=== PATIENT | female | born 1945 | race Caucasian/White ===

== ENCOUNTER 2017-02-02 18:18 | Observation (INO) | payer MEDICARE, BC ==
[~2017-02-02] VITALS: Ht 152.4 cm; Wt 83.0 kg
--- NOTE | ~2017-02-02 | ESTC ---
Cardiac Perfusion Imaging Demographics Patient Name QUE Vogel Gender Female Patient Number [id number] Race Visit Number [id number] [place] [id number] Room Number G6302 Accession Number [id number] Height Date of 1945 Weight Age 71 year(s) BSA Referring Physician Isaiah Hurt MD BMI Interpreting Jose Leslie Date of study 02/03/2017 Physician MD Supervising MD/MLP Marichuy More APRN NM Technologist Ordering Physician Isaiah Hurt MD Stress Jernigan Kj Patterson body technician/painter Stress ECG Reading Marichuy More APRN Nurse Dean Lacy RN Physician The procedure was explained in detail to the patient. Risks, complications and alternative treatments were reviewed. Written consent was obtained. Medications Reviewed with Patient prior to Procedure. Procedure Admit Source:Other. Procedure Type: Nuclear Stress Test:Pharmacological, Lexiscan, Cardiolite Stress Test Procedure Start time: 02/03/2017 09:27 Indications: Chest pain. Risk Factors The patient risk factors include:prior PCI;Current/Recent(w/in 1 year) tobacco use and treated hypercholesterolemia. Conclusions Summary Perfusion Images: The overall quality of the study is good. Left ventricular cavity is noted to be normal on the stress and normal on the rest images. There is no evidence of abnormal lung activity. The right ventricle is not visualized an cannot be assessed. Impression ECG portion of the lexiscan stress test is clinically negative for ischemia by diagnostic criteria. Myocardial perfusion imaging is mildly abnormal. The images reveal a very small size/mild reversible defect in the distal anterolateral wall consistent with ischemia . Overall left ventricular systolic function was normal. Calculated LVEF is 75% and TID ratio is 1.15. Stress Protocols Resting ECG Sinus bradycardia Resting HR:58 bpm Resting BP:97/55 mmHg Pre-stress physical exam: Patient assessed by Carlee HAIDER prior to testing. Chest - CTA Cardio - RRR, S1, S2 Stress Protocol:Pharmacologic Peak HR:73 bpm HR response: Appropriate Peak BP:102/55 mmHg BP response: Appropriate Predicted HR: 149 bpm HR/BP product:7446 % of predicted HR: 49 Reason for termination:Infusion complete ECG Findings No ECG changes suggestive of ischemia. Arrhythmias No rhythm abnormality. Symptoms Nausea. Complications Procedure complication: None. Stress Interpretation Appropriate hemodynamic response to Lexiscan. No significant ST-T wave changes with Lexiscan. ECG portion is negative for ischemia by diagnostic criteria. Will correlate with nuclear images. Imaging Results Summed scores - Summed stress score: 16 - Summed rest score: 6 - Summed difference score: 10 Stress ejection Ejection fraction:75 % EDV :79 ml ESV :20 ml Stroke volume :59 ml LV mass :106 gr Imaging Protocols Rest Stress Isotope:Tc99m Sestamibi IV Isotope dose:39.9 mCi Isotope dose:13 mCi Date:02/03/2017 09:59 Date:02/03/2017 08:00 Technique: SPECT Technique: Gated Supine SPECT Supine IV remains in place after procedure. Scan Time:45-60 minutes post Scan Time:45-60 minutes post injection injection Procedure Medications - Regadenoson (Lexiscan) 0.4 mg IV over 10-15 sec. I.V. 0.4 mg. Medications administered per verbal order and read back to physician prior to administration. Medical History Admission Data Admission date: 02/02/2017 Admission Time: 20:00 Hospital Status: Inpatient. Signatures dtt: RACHEL EARLY dtd: 02/03/17926 Physician Self Edit
--- NOTE | ~2017-02-02 | HP ---
PATIENT'S NAME: DC GREY [facility] AGE: 71 Y [address] ROOM: [address] [address] [facility] ADMIT DATE: 02/02/2017 History & Physical DISCHARGE DATE: FAMILY PHYSICIAN: SUSANA MOON PA-C ATTENDING PHYSICIAN: Faustino Dwyer DATE OF SERVICE: CHIEF COMPLAINT: Chest pain. HISTORY OF PRESENTING ILLNESS: This 71-year-old white female with previous history of coronary artery disease, hypertension, and hyperlipidemia, who was brought to the emergency department with chest pain, that began around 1 o'clock this afternoon. She states she had eaten a fairly large meal of chicken nuggets at around noon. At 1 o'clock, she did develop some epigastric pain and pressure. She does describe it like anginal symptoms, which she has had in the past. She took some nitro, and initially, it seemed to get better, but then it returned over the course of the afternoon. She did take 3 nitroglycerin tablets. Subsequently, she decided to come to the emergency room. Her initial evaluation was fairly unremarkable. Nitroglycerin drip was started, and she is now chest pain free. She had a positive stress test this past fall at an outlying facility. She was seen and evaluated by Cardiology and recommended to undergo heart catheterization. This was done on June 28, 2016, by Dr. Colon and demonstrated patent stents and continued medical therapy was recommended. She has been compliant with her medication regimen. She denies fever, chills, or sweats, but has had some occasional congestion and cough recently. Cough is not productive. She is not taking any cold medications presently. She does admit to quite a bit of acid reflux and frequently gets food and liquid into her mouth. She has had instances of food "getting stuck" in the past but has never been evaluated for that. She denies abdominal pain. She stools and voids normally. She denies numbness, tingling, weakness in her extremities, or any other associated physical or constitution complaints. ALLERGIES: PENICILLIN, SULFA, IBUPROFEN, LATEX. ILLNESSES: 1. Coronary artery disease, status post PCI with stents. PATIENT'S NAME: DC GREY [facility] AGE: 71 Y [address] ROOM: G6302 [place], [place] [address] [facility] ADMIT DATE: 02/02/2017 History & Physical DISCHARGE DATE: FAMILY PHYSICIAN: SUSANA MOON PA-C ATTENDING PHYSICIAN: Faustino Dwyer 2. Essential hypertension. 3. Hyperlipidemia. 4. Obesity. 5. Chronic dyspepsia. CURRENT MEDICATIONS: 1. Amlodipine 2.5 mg p.o. daily. 2. Aspirin 81 mg p.o. daily. 3. HCTZ 25 mg p.o. daily. 4. Atarax 25 mg p.o. daily p.r.n. 5. Acidophilus 1 cap p.o. daily. 6. Melatonin 5 mg p.o. q.h.s. 7. Multivitamin daily. 8. Nitrostat p.r.n. 9. Potassium 20 mEq p.o. daily. 10. Sertraline 50 mg p.o. q.h.s. 11. Simvastatin 10 mg p.o. q.h.s. FAMILY HISTORY: significant for coronary artery disease in both of her parents, who had both suffered myocardial infarction. Her sister had breast cancer. SOCIAL HISTORY: She is and lives in [place] with her . She does have a 50-pack- year history of smoking tobacco and continues to smoke several cigarettes per day. There is no significant history of alcohol use. REVIEW OF SYSTEMS: As per HPI. All other organ systems reviewed and are negative. OBJECTIVE: VITAL SIGNS: Temperature 97.1, pulse 84, respirations 18, blood pressure 186/85, O2 saturation 93% on room air. GENERAL: She is frail, anxious, but cooperative, lying in bed, no acute distress. SKIN: Supple, pink, warm, and dry. No obvious rashes. HEENT: Otherwise, normocephalic. Sclerae nonicteric. Pupils equal, round, and reactive to light and accommodation. Extraocular movements appear intact. Nasal turbinates normal in appearance. Oropharynx clear. Mucous membranes are pink and moist. NECK: Supple. No masses or adenopathy. No thyromegaly. No JVD. No carotid bruits are heard. CHEST: Chest wall is symmetrical. HEART: Distant regular. There is a grade 1 to 2 out of 6 systolic ejection murmur. PATIENT'S NAME: QUEDC [facility] AGE: 71 Y [address] ROOM: [place] [address] [facility] ADMIT DATE: 02/02/2017 History & Physical DISCHARGE DATE: FAMILY PHYSICIAN: SUSANA MOON PA-C ATTENDING PHYSICIAN: Faustino Dwyer LUNGS: Diminished at the bases with long expiratory phase. No letitia wheezes. No areas of consolidation. ABDOMEN: Soft, obese, nontender. Bowel sounds present. No masses. No hepatosplenomegaly. and RECTAL: Not done. EXTREMITIES: Display trace pitting edema. No cyanosis. NEUROLOGICAL: No focal deficits. LABORATORY AND X-RAY DATA: A 12-lead EKG shows no acute ST abnormalities. Cardiac enzymes reveal a CPK of 79, troponin I of less than 0.04, and CK-MB is 0.8. CBC demonstrates an elevated white blood cell count of 13.2, hemoglobin is 12.4, hematocrit is 36.1, platelets 275. Chemistries reveal a BUN and creatinine of 15 and 0.7 respectively, sodium and potassium of 139 and 3.6, chloride and CO2 are 104 and 26, calcium is 8.6. AST and ALT of 14 and 18, bilirubin is 0.3. PT and PTT of 10.1 and 31, with an INR of 0.96. Chest x-ray shows no acute cardiopulmonary abnormalities. ASSESSMENT AND PLAN: 1. Chest pain. Unstable angina versus noncardiac cause. We will admit for observation. She does fit high-risk criteria based on her history of known coronary artery disease, aspirin use, and concomitant hypertension, hyperlipidemia, and strong family history. Dr. Colon has already been notified about her arrival here and will consult. We will trend cardiac enzymes tonight and monitor her on telemetry. Hold off on heparinization but plan to continue with nitroglycerin for relief of chest pain. We will tentatively plan for a cardiac stress testing in the morning. It is reassuring that she had a negative heart catheterization within the last 6 months. Consider other possible sources for pain including the possibility of a gastroenterologic source. 2. Essential hypertension, labile but adequately controlled. We will plan to continue the home regimen and make adjustments if necessary. We will add beta-alba therapy and FOX inhibitor therapy at least preliminarily. We will monitor her response. 3. Chronic dyspepsia with gastroesophageal reflux disease. She may benefit from a GI workup at some point. We will get amylase and lipase. 4. Hyperlipidemia. Plan to continue with statin therapy. 5. Chronic hypoxic hypercapnic respiratory failure with chronic obstructive pulmonary disease and tobacco-related lung disease. Encourage good pulmonary hygiene. Supplemental oxygen if needed and urged smoking cessation. 6. Osteoarthritis, generalized. We will try to mobilize her. Symptomatic treatment but avoid nonsteroidal anti-inflammatory drugs. 7. Obesity. We will need to work on some long-term strategies for weight loss including calorie reduction, increased exercise, etc.. PATIENT'S NAME: DC GREY [facility] AGE: 71 Y [address] ROOM: [place] [address] LOCATION: [facility] ADMIT DATE: 02/02/2017 History & Physical DISCHARGE DATE: FAMILY PHYSICIAN: SUSANA MOON PA-C ATTENDING PHYSICIAN: Faustino Dwyer 8. Deep venous thrombosis prophylaxis. We will follow the VTE protocol. MD LAURE LOUIS/marinal /[id number] D: 017 T: 308 HISTORY & PHYSICAL
--- NOTE | ~2017-02-02 | ER ---
[facility] AGE[facility] 71 Y [address] ROOM: [place] [address] LOCATION: [facility] ADMIT DATE: 02/02/2017 ER/Outpatient Report DISCHARGE DATE: FAMILY PHYSICIAN: SUSANA MOON PA-C ATTENDING PHYSICIAN: Faustino Dwyer Time of Arrival: 1818 hours. Time of Evaluation: 1822 hours. IDENTIFICATION: A 71-year-old female. CHIEF COMPLAINT: Chest pain. HISTORY OF PRESENT ILLNESS: The patient is a 71-year-old female who has had left-sided chest pain off and on since about 1:00 p.m. She has taken 4 nitroglycerin throughout the day with some relief, but it has returned now with increasing severity and shortness of breath. She has nausea. No vomiting. PAST MEDICAL HISTORY: Allergies: Penicillin and sulfa. CURRENT MEDICATIONS: 1. Hydrochlorothiazide 25 mg daily. 2. Hydroxy HCl 25 mg daily. 3. Aspirin 81 mg daily. 4. Simvastatin 10 mg daily. 5. Sertraline 50 mg daily. 6. KCl 20 mEq daily. 7. Amlodipine 2.5 mg daily. MEDICAL PROBLEMS: Anemia, hyperlipidemia, depression, COPD, hypertension, pericarditis, and coronary artery disease. PRIOR SURGERIES: Cardiac stents in 2010 and 2011, cholecystectomy, appendectomy, wrist surgery, hysterectomy, and tubal ligation. SOCIAL HISTORY: The patient lives in [place]. She is retired. She is . Tobacco use: History of smoking, quit November of 2016. Alcohol use, occasional beer. Drug use, denies. PATIENT'S NAME: DC GREY [facility] AGE: 71 Y [address] ROOM: [address] [address] LOCATION: [facility] ADMIT DATE: 02/02/2017 ER/Outpatient Report DISCHARGE DATE: FAMILY PHYSICIAN: SUSANA MOON PA-C ATTENDING PHYSICIAN: Faustino Dwyer ROS: All systems reviewed and negative other than what is noted in the HPI. FAMILY HISTORY: No pertinent family history identified. PHYSICAL EXAMINATION: VITAL SIGNS: Height 5 feet 2 inches, weight 83.2 kg, blood pressure 186/85, pulse 70, respirations 22, temperature 98.6, saturations 97%. GENERAL: A pleasant 71-year-old female, in no acute distress, although her pain was 8/10 on arrival, but after one sublingual nitroglycerin, has improved to 6, and with a nitroglycerin drip, has improved to 3. HEENT: Head: Normocephalic and atraumatic. Ears: TMs are translucent, both ears. Nose: Mucosa pink, no lesions. Mouth: No lesions. Pharynx benign. NECK: Supple. No lymphadenopathy. LUNGS: Clear to auscultation. HEART: Regular rate and rhythm. ABDOMEN: Soft, nondistended, and nontender. SKIN: [place], warm, and dry. No lesions or rashes noted. NEURO: No focal deficit. Trace of lower extremity edema. No calf tenderness. LABORATORY DATA: EKG: Normal sinus rhythm at 64 beats per minute. No acute ST elevation or depression. Hemoglobin 12.4, hematocrit 36.1, platelets 275, white count 13.2, normal differential. INR 0.96. ProBNP 448. Sodium 139, potassium 3.6, chloride 104, CO2 26, BUN 15, creatinine 0.7. Blood sugar 96. Liver enzymes are normal. Magnesium 2.1. CPK is 79. CK-MB 0.8. Troponin I less than 0.040. Chest x-ray, no acute process, pending Radiology over-read. D-dimer normal at 0.32. IMPRESSION: Chest pain, relieved with nitroglycerin. PLAN: 1. The patient took one full-strength aspirin prior to arrival. She is on a nitroglycerin drip and her pain is improved significantly. She will be admitted for serial EKG and enzymes per Dr. Dwyer, hospitalist, who did evaluate her here in the emergency room. Dr. Colon has been notified and will provide consultation. She did have a negative catheterization in June. 2. Hypertension. 3. Hyperlipidemia. PATIENT'S NAME: DC GREY [facility] AGE: 71 Y [address] ROOM: G6302 [place], [place] [address] [facility] ADMIT DATE: 02/02/2017 ER/Outpatient Report DISCHARGE DATE: FAMILY PHYSICIAN: SUSANA MOON PA-C ATTENDING PHYSICIAN: Faustino Dwyer MD LEROY KING/luis eduardo /[id number] d: 02/03/17 0456 t: 02/03/17 0549, OUTPATIENT REPORT
--- NOTE | ~2017-02-02 | DS ---
PATIENT'S NAME: DC GREY [facility] AGE: 71 Y [address] ROOM: [address] [address] LOCATION: [facility] ADMIT DATE: 02/02/2017 Discharge Summary DISCHARGE DATE: 02/03/2017 FAMILY PHYSICIAN: Jyoti Daigle PA-C ATTENDING PHYSICIAN: Faustino Dwyer PRINCIPAL DISCHARGE DIAGNOSIS: Atypical chest pain. SECONDARY DIAGNOSES: 1. Obstructive sleep apnea. 2. History of tobacco use x50 years. The patient reports she quit 3 months ago. 3. Wheeze. 4. Dyspnea on exertion. 5. Coronary artery disease, status post stents. 6. Essential hypertension. 7. Obesity. 8. Hyperlipidemia. 9. Bradycardia. CONSULTATIONS: Cardiology, Dr. Colon. BRIEF HISTORY: Ms. Grey is a very pleasant, 71-year-old female with a known history of coronary artery disease, but has had a negative cardiac catheterization in June 2016. She follows up with Dr. Colon as an outpatient. She was recently started on amlodipine by him. The patient developed substernal chest pain at home after eating chicken nuggets for lunch. The epigastric pain and pressure resolved after nitroglycerin, but recurred. She then presented to the emergency room where nitroglycerin drip was started, and she became pain-free by the time the hospitalist evaluate her. On my review of systems, the patient states that she is currently pain-free after a stress test this morning that had a very small area of reversible ischemia, but it was not felt to be significant, and no EKG changes. She is off nitroglycerin drip. She had earlier some chest pain which resolved spontaneously. She was given a GI cocktail. She reports that she has been short of breath for the past 3 weeks. She was also indicating to the respiratory therapist that she does have sleep apnea and is noncompliant every night with her CPAP, which she has had for a couple of years. She was given nebulizers several years ago for an episode of bronchitis, but she does not take any kind of inhalers on a daily basis at this time. She does not see a machine brusher. PATIENT'S NAME: DC GREY [facility] AGE: 71 Y [address] [address] LOCATION: [facility] ADMIT DATE: 02/02/2017 Discharge Summary DISCHARGE DATE: 02/03/2017 FAMILY PHYSICIAN: Jyoti Daigle PA-C ATTENDING PHYSICIAN: Faustino Dwyer She is ready for discharge, and we had her ambulate around the hallway, which she did without difficulty, and her saturation ranged from 89% to 93% on room air. Thus, she does not qualify for home O2 at this time. She and her both expressed a desire to go home and agree with early followup with PCP and director of operations home health, and I have recommended a referral to machine brusher to sort out her issues with her sleep apnea machine and evaluate her for COPD. INSTRUCTIONS AT DISCHARGE: Cardiac diet with low carb. Activity as tolerated. Follow up with Dr. Colon in the next 2 weeks. See her PCP, Jyoti Daigle, in less than a week. Write a referral to Pulmonology for PFTs, evaluation for COPD, and to assess her sleep apnea. She also may need a full echocardiogram to evaluate for pulmonary hypertension. CONDITION AT DISCHARGE: Good. MEDICATIONS: 1. Nitroglycerin sublingual p.r.n. chest pain. 2. Amlodipine 2.5 mg p.o. daily. 3. Aspirin 325 mg daily with lunch. 4. She was started on enalapril 2.5 mg p.o. daily. I will give her a script for that. 5. Hydrochlorothiazide 25 mg p.o. daily. 6. Atarax 25 mg p.o. q.h.s. p.r.n. itching. 7. Probiotic one capsule at home. 8. Melatonin 5 mg p.o. at h.s. 9. Multivitamin one p.o. daily. 10. Potassium 20 mEq p.o. daily. 11. Sertraline 50 mg p.o. at h.s. 12. Zocor 10 mg p.o. at h.s. 13. She was given a beta-alba here, but her heart rate is slow, and I do not think it is appropriate to continue that at this time. 14. I have given her a script for albuterol MDI one puff p.r.n. wheeze or dyspnea 4 times a day and Spiriva one capsule inhaled daily on a scheduled basis. Greater than 30 minutes were spent in the discharge process. DAVID RODRIGUEZ MD LM/luis eduardo PATIENT'S NAME: DC GREY [facility] AGE: 71 Y [address] ROOM: [place] [address] [facility] ADMIT DATE: 02/02/2017 Discharge Summary DISCHARGE DATE: 02/03/2017 FAMILY PHYSICIAN: Jyoti Daigle PA-C ATTENDING PHYSICIAN: Faustino Dwyer /[id number] CC: STEPHANIE Kay MD d: 02/04/17 1902 t: 02/12/17 1810, DISCHARGE SUMMARY
--- NOTE | ~2017-02-02 | CON ---
PATIENT'S NAME: WHITNEY GREYE Jaspreet [facility] AGE: 71 Y [address] ROOM: [place] [address] LOCATION: GPCU ADMIT DATE: 02/02/2017 Consultation DISCHARGE DATE: FAMILY PHYSICIAN: SUSANA MOON PA-C ATTENDING PHYSICIAN: Faustino Dwyer REFERRING PHYSICIAN: Blu Colon MD REASON FOR ADMISSION: Chest pain. HISTORY OF PRESENT ILLNESS: This is a 71-year-old female, who presented to the emergency room with complaints of left-sided chest pain that has been going on since 1 p.m. She has taken four nitroglycerin throughout the day with some relief, but it returned again, now increasing in severity as well as shortness of breath. She has some nausea but no vomiting with this. She carries a history of coronary artery disease and had a left heart catheterization on June 12, 2016. At that time, her LAD was normal, RCA was normal, LCX was also normal. Medical therapy was recommended. She has had stents placed to the LCX in 2011 and to the RCA in 2010. Her cardiac enzymes so far have been negative, and her EKG does not show any new ST or T-wave changes. She denies any shortness of breath. She denies dyspnea on exertion. No orthopnea, PND, and no peripheral edema. She denies any fevers or chills. She occasionally has a cough but is nonproductive. She does admit to lot of acid reflux. She also describes instances where food gets "stuck in the back of her throat," but she has never been evaluated for that. ACTIVE PROBLEM LIST: 1. Coronary artery disease. 2. Dyslipidemia. 3. Essential hypertension. 4. Obstructive sleep apnea, using CPAP. 5. Gastroesophageal reflux disease. 6. COPD. 7. Overactive bladder. 8. Anxiety and depression. 9. History of hypokalemia. 10. History of pericarditis. 11. History of migraines. 12. C. diff years ago in [facility]. PAST SURGICAL HISTORY: 1. Appendectomy. 2. Hysterectomy. 3. Cholecystectomy. 4. Tubal ligation. PATIENT'S NAME: DC GREY [facility] AGE: 71 Y [address] ROOM: [place] [id number] [facility] ADMIT DATE: 02/02/2017 Consultation DISCHARGE DATE: FAMILY PHYSICIAN: SUSANA MOON PA-C ATTENDING PHYSICIAN: Faustino Dwyer 5. History of left breast lumpectomy. 6. Trigger finger release x2. 7. Two surgeries on her shoulder. 8. Left heart catheterization, 01/03/2004, nonobstructive disease. 9. Left heart catheterization, 06/20/2011, PTCA and stent to the RCA. 10. Left heart catheterization, 12/06/2011, PTCA and stent to ostial left circumflex. 11. Left heart catheterization, 01/01/2014, two-vessel coronary artery disease, patent stent to the left circumflex and right coronary artery. 12. Left heart catheterization, 06/12/2016, patent stents, nonobstructive disease. ALLERGIES: PENICILLIN, SULFA, ASPIRIN, IBUPROFEN, ADHESIVE TAPE, LATEX. CURRENT MEDICATIONS: 1. Amlodipine 2.5 mg daily. 2. Aspirin 325 mg daily. 3. Hydrochlorothiazide 25 mg daily. 4. Hydroxyzine 25 mg every h.s. 5. Acidophilus 1 capsule daily. 6. Melatonin 5 mg every h.s. 7. Multivitamin 1 p.o. every day. 8. Nitroglycerin sublingual 0.4 mg p.r.n. 9. Potassium chloride 20 mEq every day. 10. Zoloft 50 mg every h.s. 11. Zocor 1/2 of a 20 mg tablet or 10 mg every day. FAMILY HISTORY: Father from an SD. Mother had hypertension, diabetes mellitus, and history of an SD. She has sisters with heart problems, congestive heart failure, and a sister with diabetes. She had a brother, who from stomach cancer. SOCIAL HISTORY: She is . She smoked for 55 years, a pack of cigarettes a day. She quit in November of this year. She has 2 alcoholic drinks a week. REVIEW OF SYSTEMS: GENERAL: She has been a little more fatigued. HEAD: She does have a history of migraines. EYES: She wears corrective lenses. EARS: No problems with hearing. NOSE: No epistaxis or rhinorrhea. MOUTH: No gingival bleeding. PATIENT'S NAME: DC GREY [facility] AGE: 71 Y [address] ROOM: [id number] [place], [place] [id number] LOCATION: GPCU ADMIT DATE: 02/02/2017 Consultation DISCHARGE DATE: FAMILY PHYSICIAN: SUSANA MOON PA-C ATTENDING PHYSICIAN: Faustino Dwyer THROAT: Denies sore throat, hoarseness. She does have difficulty with swallowing at times. She does complain of gastroesophageal reflux with fluid and sometimes food regurgitation into her mouth. PULMONARY: She carries a history of COPD and has some problems with shortness of breath. CV: Per HPI. GASTROINTESTINAL: Positive for heartburn. She has a history of C. diff, but no active problems at this time. No nausea, vomiting, diarrhea. No melena. No history of elevated liver enzymes. GENITOURINARY: Negative for urinary tract infection. ENDOCRINE: No heat or cold intolerances. No problems with diabetes mellitus. No hyper or hypothyroidism. MUSCULOSKELETAL: She does have complaints of osteoarthritis and generalized discomfort. NEUROLOGIC: She denies numbness or tingling or feeling off-balance. PSYCHIATRIC: No complaints of active depression. PHYSICAL EXAMINATION: VITAL SIGNS: She is 6 feet 0.5 inches tall, weighs 163 pounds. GENERAL: She is alert and oriented. Answers questions appropriately. SKIN: Warm, dry, and pink. HEENT: Pupils equal, round, and react briskly to light. EOMs are intact. Nose is non-deviated. No rhinorrhea is noted. Oral mucosa pink and moist. No lesions noted. NECK: Soft and supple. No lymphadenopathy. No thyromegaly. JVD is flat. No carotid bruits are noted. LUNGS: Lung sounds are clear but diminished posteriorly with good symmetrical chest rise. CV: Regular with a normal S1 and S2. There is no evidence of an S3 or S4. ABDOMEN: Soft, nontender. Bowel sounds are present. There is no evidence of rebound or guarding. EXTREMITIES: Show no peripheral edema. No clubbing and no cyanosis. Distal pulses are 2+/4. VASCULAR: No distal edema. Distal pulses are 2+. NEUROLOGIC: Motor and sensory exam are normal in the upper and lower extremities. PSYCHIATRIC: She is alert and oriented to person, place, and time. No active signs of depression. LABORATORY DATA: Cardiac enzymes are negative x3. Her white count is 13.2, hemoglobin is 12.4, and platelets are 275. BUN is 15, creatinine 0.7, sodium 139, potassium is 3.6, glucose is 96, magnesium is 2.1. Fasting lipid profile: Cholesterol 121, triglycerides 59, HDL 66, LDL is 44. UA is normal. PATIENT'S NAME: DC GREY [facility] AGE: 71 Y [address] ROOM: [place] [address] [facility] ADMIT DATE: 02/02/2017 Consultation DISCHARGE DATE: FAMILY PHYSICIAN: SUSANA MOON PA-C ATTENDING PHYSICIAN: Faustino Dwyer ASSESSMENT: 1. Atypical chest discomfort. We are going to have her ambulate in the halls, call if she has chest pain. She is scheduled for a Lexiscan Cardiolite stress test and further recommendations will be forthcoming. 2. Exertional dyspnea. Once again, we will see what her Lexiscan shows as it certainly could be related to her chronic obstructive pulmonary disease. 3. Hypertension. Blood pressure is under good control. She will continue the same home medications. 4. Obstructive sleep apnea. She is to continue to use her CPAP therapy. The assessment and plan, history of present illness, and physical exam are per Dr. Hilary Colon. Further recommendations will be forthcoming as information becomes available. RYAN ARCHER APRN FOR MD ALISON SETHI/luis eduardo /[id number] d: [id number] t: 02/19/17 0921, CONSULTATION REPORT
[~2017-02-02 18:18] MED LIST: ACIDOPHILUS1 EAC4 PO; ASPIRIN EC325 MG PO; ATARAX25 MG PO; CPAP INH; HYDRODIURIL25 MG PO; K-TAB ER20 MEQ PO; MELATONIN5 MG PO; MULTI VITAMIN1 EACH PO; NITROSTAT0.4 MG SL; NORVASC2.5 MG PO; ZOCOR20 MG PO; ZOLOFT50 MG PO
[2017-02-02 18:38] LABS: BASOPHIL # 0.1 K/uL (0.0-0.2); BASOPHIL % 0.8 %; EOSINOPHIL # 0.3 K/uL (0.0-0.5); EOSINOPHIL % 2.1 %; HEMATOCRIT 36.1 % (33.0-46.0); HEMOGLOBIN 12.4 g/dL (10.0-15.0); IMMATURE GRANULOCYTE % 0.2 %; LYMPHOCYTE # 2.6 K/uL (0.8-4.0); LYMPHOCYTE % 19.7 %; MCH 33.3 pg (27.0-34.0); MCHC 34.3 gm/dL (32.0-36.5); MONOCYTE # 1.4 K/uL (0.0-1.0); MONOCYTE % 10.7 %; MPV 10.1 fl (9.4-12.4); NEUTROPHIL # (ANC) 8.8 K/uL (1.8-7.8); NEUTROPHIL % 66.5 %; NRBC % 0 /100WBC (0-0.00); PLATELET COUNT 275 K/uL (150-450); RBC 3.72 M/uL (3.50-5.50); WBC 13.2 K/uL (4.0-11.0)
[2017-02-02 18:56] LABS: INR - (THERAPEUTIC) 0.96 (0.92-1.07); PROTIME 10.1 SECONDS (9.8-11.4); PTT 31 SECONDS (25-32)
[2017-02-02 18:57] LABS: ALBUMIN 3.6 gm/dL (3.5-5.0); ALK PHOS 53 IU/L (33-138); ALT 18 IU/L (12-78); ANION GAP 12.6 (10.0-19.0); AST 14 IU/L (10-40); BLOOD UREA NITROGEN 15 mg/dL (6-24); CALCIUM 8.6 mg/dL (8.5-10.5); CHLORIDE 104 mMol/L (96-110); CO2 26 mMol/L (22-32); CPK 79 IU/L (21-215); CREATININE 0.7 mg/dL (0.5-1.1); ESTIMATED GFR (MDRD EQUATION) > 60; MAGNESIUM 2.1 mg/dL (1.8-2.6); POTASSIUM 3.6 mMol/L (3.7-5.1); SODIUM 139 mMol/L (135-145); TOTAL BILIRUBIN 0.3 mg/dL (0.0-1.5); TOTAL PROTEIN 7.5 g/dL (6.0-8.4)
[2017-02-02 21:15] LABS: BILIRUBIN URINE NEGATIVE (NEGATIVE); BLOOD URINE NEGATIVE /UL (NEGATIVE); COLOR URINE YELLOW (YELLOW); GLUCOSE URINE NEGATIVE (NEGATIVE); KETONE URINE NEGATIVE (NEGATIVE); LEUKOCYTES URINE 25 /UL (NEGATIVE); NITRITE URINE NEGATIVE (NEGATIVE); PROTEIN URINE NEGATIVE (NEGATIVE); TURBIDITY URINE CLEAR (CLEAR); UROBILINOGEN URINE NORMAL (NORMAL)
[2017-02-02 21:23] LABS: BACTERIA URINE NEGATIVE (NEGATIVE); EPITHELIAL URINE 0-2 #/HPF (NEGATIVE); RBC URINE NEGATIVE #/HPF (NEGATIVE)
[2017-02-03 01:39] LABS: CPK 78 IU/L (21-215)
--- NOTE | 2017-02-03 01:46 | NUR ---
Pt arrives to PCU from ED after experiencing chest pain throughout the day which was not relieved with sublingual nitro. Pt finally went in to ER when symptoms worsened from just chest pain to shortness of breath and nausea. Pt was started on Nitro gtt which decreased pain to a tolerable level. Pt normally sees Dr. Wang. Has hx of stents x2 and CABG. A/Ox3. VSS. On 1L/NC.
--- NOTE | 2017-02-03 04:11 | NUR ---
Significant events: Pt A/Ox3. VSS. Nitro gtt at 5mcg most of shift, turned off at 0400 for SBP 91. Rates chest pain between 2-3. Up SBA. NPO since midnight. Isaiah to see this AM.
[2017-02-03 06:58] LABS: CPK 83 IU/L (21-215)
--- NOTE | 2017-02-03 12:35 | NUR ---
Introduced self and role of care management to patient and . They live in [place]. She states that she is able to do all her own ADL's. She states that her does assist if needed. She plans on returning home on discharge. They deny any needs at this time. Will continue to follow.
[2017-02-03 15:31] LABS: CPK 96 IU/L (21-215)
--- NOTE | 2017-02-03 16:24 | NUR ---
Significant Event: Patient A/O x 3. Up with SBA. VSS on 2L per ACS protocol and due to shortness of breath. Crackles in the bases. Nitro shut off at 0700 this morning prior to stress test. Stress test showed mild ischedmia in the distal anterior lateral wall. No plans for a heart cath at this point. Dr. Colon aware. Patient started having chest pain around 1400. EKG and enzymes negative. Continues in sinus bradycardia. RFA PIV with NS infusing at TKO rate. GI cocktail and protonix given later this afternoon. Denies any other needs throughout the day. at bedside. Follow up: Continue as per plan of care. Monitor for chest pain.
[2017-02-03 18:46] LABS: CPK 117 IU/L (21-215)
[2017-02-03] MEDS ORDERED: PROVENTIL OR V6.7 GM INH (20:37)
[2017-02-03] MEDS ORDERED: SPIRIVA18 MCG INH (20:38)
== END 2017-02-03 21:05 | disposition disaster alternative care site (69) ==
LOC: GMED 18:18 → GPCU 20:00
PROVIDERS: Family Medicine; ADMIT Family Medicine
DX: R07.89 Other chest pain (principal); I25.810 Atherosclerosis of coronary artery bypass graft(s) without angina pectoris; I10 Essential (primary) hypertension; G47.33 Obstructive sleep apnea (adult) (pediatric); R06.2 Wheezing; R06.00 Dyspnea, unspecified; E78.5 Hyperlipidemia, unspecified; R00.1 Bradycardia, unspecified; J44.9 Chronic obstructive pulmonary disease, unspecified; J96.11 Chronic respiratory failure with hypoxia; M15.9 Polyosteoarthritis, unspecified; E66.9 Obesity, unspecified; Z68.35 Body mass index [BMI] 35.0-35.9, adult; Z87.891 Personal history of nicotine dependence; Z91.040 Latex allergy status; Z88.0 Allergy status to penicillin; Z88.2 Allergy status to sulfonamides; Z88.9 Allergy status to unspecified drugs, medicaments and biological substances; Z79.82 Long term (current) use of aspirin; Z90.49 Acquired absence of other specified parts of digestive tract; Z90.710 Acquired absence of both cervix and uterus; Z98.51 Tubal ligation status; Z98.890 Other specified postprocedural states; Z79.899 Other long term (current) drug therapy
CPT/HCPCS: A9500; G0237; G0378; J2785; J7030